=== PATIENT | male | born 1965 | race Caucasian/White ===

== ENCOUNTER 2022-04-02 08:50 | Emergency (ER) | payer MEDICAID ==
[~2022-04-02] VITALS: Ht 180.3 cm; Wt 79.5 kg
[2022-04-02 08:53] VITALS: BP 136/69
[2022-04-02] MEDS ORDERED: BACITRACIN 0.9 GM PACKET OINTMENT TP ONE (10:00)
[2022-04-02] MEDS ORDERED: DOXYCYCLINE HYCLATE 100 MG TABLET PO ONE (10:00)
[2022-04-02] MEDS ORDERED: DOXY-354 PO (10:43)
== END 2022-04-02 10:55 | disposition home or self-care (01) ==
LOC: EMS 08:52
DX: L03.012 Cellulitis of left finger (principal)
CPT/HCPCS: 10060; 99283